=== PATIENT | male | born 1955 | race Hispanic/Latino ===

== ENCOUNTER → 2019-02-23 | Day surgery (SDC) | payer MEDICARE, OTHER ==
[~2019-02-23] MED LIST: ATENOLOL50 MG PO; FENTANYL CITRATE/PF 100MCG/2 ML INJ ONE; GABAPENTIN300 MG PO; LISINOPRIL10 MG PO; MIDAZOLAM HCL 2 MG/2 ML VIAL ONE; NAPROXEN250 MG PO; OMEPRAZOLE40 MG PO; PROPOFOL IV EMULSION 10 MG/ML 50 ML VIAL ONE; SIMVASTATIN20 MG PO; ULTRAM50 MG PO
--- OUTSIDE RECORDS SUMMARY | 2019-02-23 06:23 | XMS REPORT ---
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 Allergies, Adverse Reactions, Alerts Allergy Name Allergy Type Status Severity Reaction(s) Onset Date Inactive Date Treating Clinician Comments propoxyphene napsylate DA Active [place] 2015-07-06 00:00:00 Penicillins DA Active [place] 2015-07-06 00:00:00 Shellfish DA Active [place] 2015-07-06 00:00:00 iodine DA Active [place] 2015-07-06 00:00:00 hydrocodone DA Active U 2015-07-06 00:00:00 acetaminophen DA Active [place] 2015-07-06 00:00:00 methocarbamol DA Active U 2015-07-06 00:00:00 carisoprodol DA Active U 2015-07-06 00:00:00 metaxalone DA Active [place] 2015-07-06 00:00:00 gabapentin DA Active U 2015-07-06 00:00:00 tizanidine DA Active U 2015-07-06 00:00:00 Medications This patient has no known medications.
[2019-02-23 09:35] VITALS: BP 112/67
== END | disposition home or self-care (01) ==
LOC: OR 06:09
PROVIDERS: ATTEND Internal Medicine Gastroenterology
DX: R10.13 Epigastric pain (principal); Z68.29 Body mass index [BMI] 29.0-29.9, adult; E66.3 Overweight; Z91.041 Radiographic dye allergy status; Z88.5 Allergy status to narcotic agent; Z88.0 Allergy status to penicillin; Z91.013 Allergy to seafood; K21.9 Gastro-esophageal reflux disease without esophagitis; F41.9 Anxiety disorder, unspecified; I10 Essential (primary) hypertension; K29.70 Gastritis, unspecified, without bleeding
CPT/HCPCS: 43239; 88305; 88312; 93005; J2250; J2704; J3010

== ENCOUNTER → 2019-07-11 | Outpatient (CLI) | payer MEDICARE, OTHER ==
[~2019-07-11] MED LIST changes: -FENTANYL CITRATE/PF 100MCG/2 ML INJ ONE; -MIDAZOLAM HCL 2 MG/2 ML VIAL ONE; -PROPOFOL IV EMULSION 10 MG/ML 50 ML VIAL ONE
--- NOTE | 2019-07-11 15:22 | Diagnostic Imaging Report ---
EXAMINATION: CHEST 2 VIEWS INDICATION: Hypertension COMPARISON: None FINDINGS: LINES/TUBES:None LUNGS:The lungs are well-inflated. No focal consolidation or pulmonary edema. PLEURA:No pleural effusion or pneumothorax. MEDIASTINUM:The cardiomediastinal silhouette appears normal in size and shape. BONES/SOFT TISSUES:No acute osseous injury. ABDOMEN:No free air under the diaphragm. IMPRESSION: No focal pneumonia or pulmonary edema. Signed by: Edgardo Trimble MD on 07/11/2019 3:20 PM
== END ==
LOC: RAD 14:37
PROVIDERS: ATTEND Internal Medicine
DX: I10 Essential (primary) hypertension (principal)
CPT/HCPCS: 71046

== ENCOUNTER → 2020-03-08 | Outpatient (CLI) | payer MEDICARE, OTHER | LOC: RAD 09:13 | PROVIDERS: ATTEND Internal Medicine | DX: R05 Cough (principal) | CPT/HCPCS: 71046 ==